=== PATIENT | male | born 1975 | race Caucasian/White ===

== ENCOUNTER 2021-07-14 21:15 | Emergency (ER) | payer OTHER ==
[~2021-07-14] VITALS: Ht 152.4 cm; Wt 46.0 kg
[2021-07-14 22:45] VITALS: BP 126/30
== END 2021-07-14 22:47 | disposition home or self-care (01) ==
LOC: EMS 21:19
DX: F41.8 Other specified anxiety disorders (principal)
CPT/HCPCS: 99283